=== PATIENT | female | born 1975 | race Caucasian/White ===

== ENCOUNTER → 2022-11-09 09:49 | Outpatient (BNVA) | payer BC, SELFPAY | PROVIDERS: Family Provider Nurse Practitioner Family; Visit Provider Obstetrics & Gynecology | DX: Z30.9 Encounter for contraceptive management, unspecified (principal); Z12.4 Encounter for screening for malignant neoplasm of cervix | CPT/HCPCS: 81025; 87624 ==

== ENCOUNTER → 2022-11-26 11:36 | Outpatient (BNVA) | payer BC, SELFPAY | PROVIDERS: Family Provider Nurse Practitioner Family; Visit Provider Obstetrics & Gynecology | DX: Z30.430 Encounter for insertion of intrauterine contraceptive device (principal) | CPT/HCPCS: 76830 ==

== ENCOUNTER 2024-07-18 11:27 | Emergency (ER) | payer BC, SELFPAY ==
[2024-07-18 11:42] VITALS: BP 129/83; PULSE 63; RESP 18; TEMP 36.7; O2SAT 99; BMI 31.2
--- NOTE | 2024-07-18 11:54 | CT_ITS ---
WS: [id number] CT ABDOMEN PELVIS TECHNIQUE: Noncontrast CT of the abdomen and pelvis with coronal and sagittal reformatted images. CLINICAL INFORMATION: flank pain COMPARISON: None. DLP: 689.[address] scans at [facility] use at least one of these dose optimization techniques: automated exposure control; mA and/or kV adjustment per patient size (includes targeted exams where dose is matched to clinical indication); or iterative reconstruction. FINDINGS: Postoperative changes gastric sleeve procedure. Normal noncontrast liver and spleen. Some images degraded by respiratory artifact in the upper abdomen. Normal noncontrast pancreas. Fat-containing epigastric hernia. Tiny fat- containing umbilical hernia. IUD. Adrenal glands are normal. Mild to moderate LEFT hydronephrosis with LEFT ureterectasis. Inflammatory stranding and edema about the LEFT ureter. Obstructing distal LEFT ureteral calculus measuring 4.6 mm. This is proximal to the UVJ in the distal third ureter. No hydronephrosis in the RIGHT kidney. Few sigmoid diverticuli. Normal sigmoid colon. Normal appendix. Grade 1 anterolisthesis L4 on L5. CT/CT kidney stone [id number] IMPRESSION: 1. 4.6 mm obstructing LEFT distal ureteral calculus proximal to the UVJ in the pelvis. 2. Mild to moderate LEFT hydronephrosis with induration and inflammatory stran ding about the LEFT kidney. Mild LEFT ureterectasis. 3. IUD. 4. Prior gastric sleeve. 5. Small epigastric and umbilical fat-containing hernias. 6. No other acute findings.
--- NOTE | 2024-07-18 11:56 | ED_ITS ---
HPI - Back Pain/Injury 2 General: Chief Complaint: Back Pain/Injury Stated Complaint: back and abdominal pain Time Seen by Provider: 07/18/24 11:39 Source: patient Mode of arrival: ambulatory Limitations: no limitations History of Present Illness: 49-year-old female states been having le ft flank pain radiating to groin last 2 days. States pains been sharp in nature rates a 7 out of 10 she had nausea vomiting with the pain states pain feels internal denies any worsening with movement or palpation. States she has noticed that her urine seems concentrated but she denies any dysuria or frequency. She denies fever no history of kidney stones Associated symptoms: Deny abdominal pain, chills, dysuria, fever(s), nausea or vomiting Related Data Home Medications ?Medication ?Instructions ?Recorded ?Confirmed levonorgestrel (Mirena) 1 device intrauterine .8 yea rs 11/09/22 07/18/24 escitalopram oxalate 20 mg tablet 20 mg PO DAILY 07/1807/18/24 Previous Rx's ?Medication ?Instructions ?Recorded hydrocodone 5 mg-acetaminophen 325 1 tab PO Q6H PRN pa in #14 tabs 07/18/24 mg tablet ondansetron 4 mg disintegrating 4 mg PO Q6H PRN nausea and 07/18/24 tablet vomiting #14 tabs tamsulosin 0.4 mg capsule (Flomax) 0.4 mg PO DAILY #5 caps 07/18/24 Allergies Allergy/AdvReac Type Severity Reaction Status Date / Time Sulfa (Sulfonamide Allergy rash Verified 11/09/22 09:31 Antibiotics) Review of Systems 2 Const: Denies: fever(s), chills, body aches or change in appetite ENMT: Denies: throat pain or dental pain Card: Denies: chest pain Resp: Denies: dyspnea GI: Denies: abdominal pain, nausea, vomiting or diarrhea : Reports: flank pain; Denies: dysuria Musc: Denies: neck pain or back pain Skin/Breast: Denies: rash Neuro: Denies: headache(s) PFSH ED 2 PFSH: Family History (Updated 11/09/22 @ 09:32 by Hunter Tariq) Mother Heart disease Diabetes Denies family history of Colon cancer Ovarian cancer Hyperlipidemia Breast cancer Hypertension Uterine cancer Thyroid disease Stroke Physical Exam 2 Const: COMMON NORMALS: no acute distress, patient oriented x3 and healthy appearing HENMT: COMMON NORMALS: normocephalic and atraumatic HEAD & SCALP: n ormocephalic and atraumatic Eye: COMMON NORMALS: conjunctivae normal CONJUNCTIVA: Yes conjunctivae normal Neck/C-Spine: COMMON NORMALS: full ROM and supple Chest: COMMONS NORMALS: normal inspection of the chest Resp: COMMON NORMALS: normal respiratory effort, No retractions, No use of accessory muscles and clear to auscultation bilaterally AUSCULTATION: clear to auscultation bilaterally Cardio: COMMON NORMALS: regular rate, regular rhythm and No murmurs present (Cardio) RATE: regular rate RHYTHM: regular rhythm GI: COMMON NORMALS: Normal to inspection, nondistended, normoactive bowel sounds present, Soft to palpation, non-tender and no masses PALPATION: Yes Soft to palpation : OTHER: No flank tenderness Extremity: COMMON NORMALS: normal to inspection and full ROM Neuro: COMMON NORMALS: patient oriented x3, moves all extremities and no focal motor deficits Psych: COMMON NORMALS: mental status grossly normal, Normal thought process present and cooperative THOUGHT PROCESS: Normal thought process present Skin: COMMON NORMALS: no rashes or lesions noted and no wounds GENERAL SKIN EXAM: no rashes or lesions noted Course 2 Vital Signs: Vital signs: Vital Signs Temperature 98.1 F 07/18/24 11:42 Pulse Rate 63 07/18/24 11:42 Respiratory Rate 24 H 07/18/24 12:04 Blood Pressure 129/83 07/18/24 11:42 Pulse Oximetry 98 07/18/24 12:04 Oxygen Delivery Me thod Room Air 07/18/24 11:42 MDM - Back Pain/Injury Medical Decision Making Patient presents here with flank pain does have a kidney stone no signs of infection her pain has improved here we will prescribe her pain medicine she is follow-up with her PCP return if worsening she understands agrees to plan Medical Records I reviewed the patient's medical records. Labs I reviewed the patient's lab results. 07/18/24 12:00 07/18/24 12:00 Radiology Impressions Abdomen/Pelvis CT 07/18/24 11:54 IMPRESSION: 1. 4.6 mm obstructing LEFT distal ureteral calculus proximal to the UVJ in the pelvis. 2. Mild to moderate LEFT hydronephrosis with induration and inflammatory stranding about the LEFT kidney. Mild LEFT ureterectasis. 3. IUD. 4. Prior gastric sleeve. 5. Small epigastric and umbilical fat-containing hernias. 6. No other acute findings. Laboratory Results WBC 8.09 10^3/uL (3.29-11.43) 07/18/24 12:00 RBC 4.81 10^6/uL (3.85-5.65) 07/18/24 12:00 Hgb 13.60 g/dL (11.27-16.99) 07/18/24 12:00 Hct 41.7 % (36-47) 07/18/24 12:00 MCV 86.7 fl (85-98) 07/18/24 12:00 MCH 28.3 pg (27-33) 07/18/24 12:00 MCHC 32.6 g/dL (30-55) 07/18/24 12:00 RDW 11.9 % (12.1-15.1) L 07/18/24 12:00 Plt Count 278 10^3/cmm (157-399) 07/18/24 12:00 MPV 10.1 fL (7.4-10.4) 07/18/24 12:00 Neut % (Auto) 70.9 % 07/18/24 12:00 Lymph % (Auto) 21.8 % 07/18/24 12:00 [place] % (Auto) 3.8 % 07/18/24 12:00 Eos % (Auto) 2.8 % 07/18/24 12:00 Baso % (Auto) 0.6 % 07/18/24 12:00 Neut # (Auto) 5.73 10^3/uL (1.8-7.7) 07/18/24 12:00 Lymph # (Auto) 1.8 10^3/uL (0.8-4.8) 07/18/24 12:00 [place] # (Auto) 0.3 10^3/uL (0.2-0.9) 07/18/24 12:00 Eos # (Auto) 0.2 10^3/uL (0.0-0.8) 07/18/24 12:00 Baso # (Auto) 0.1 10^3/uL (0.0-0.1) 07/18/24 12:00 Nucleated RBC % (auto) 0 % 07/18/24 12:00 Nucleated RBCs # 0.0 /100WBC 07/18/24 12:00 Sodium 141 mmol/L (136-145) 07/18/24 12:00 Potassium 4.6 mmol/L (3.5-5.1) 07/18/24 12:00 Chloride 105 mmol/L (98-107) 07/18/24 12:00 Carbon Dioxide 24 mmol/L (22-29) 07/18/24 12:00 Anion Gap 16.6 (5-19) 07/18/24 12:00 BUN 12 mg/dL (6-20) 07/18/24 12:00 Creatinine 0.8 mg/dL (0.5-0.9) 07/18/24 12:00 GFR Calculation 76.2 mL/min (90-130) L 07/18/24 12:00 Glucose 131 mg/dL (65-115) H 07/18/24 12:00 Calculated Osmolality 294 mOsm/kg (285-295) 07/18/24 12:00 Calcium 9.2 mg/dL (8.5-10.5) 07/18/24 12:00 Total Bilirubin 0.5 mg/dL (0.15-1.2) 07/18/24 12:00 AST 16 U/L (0-32) 07/18/24 12:00 ALT 13 U/L (0-33) 07/18/24 12:00 Alkaline Phosphatase 80 U/L (35-105) 07/18/24 12:00 Total Protein 7.4 g/dL (6.6-8.7) 07/18/24 12:00 Albumin 4.6 g/dL (3.5-5.2) 07/18/24 12:00 Globulin 2.8 g/dL (1.3-4.6) 07/18/24 12:00 Lipase 34 U/L (13-60) 07/18/24 12:00 Urine Color Yellow (Yellow) 07/18/24 12:05 Urine Appearance Cloudy (CLEAR) A 07/18/24 12:05 Urine pH 5.0 (5-7) 07/18/24 12:05 Ur Specific [place] 1.018 (1.005-1.030) 07/18/24 12:05 Urine Protein 1+ (Negative) A 07/18/24 12:05 Urine Glucose (UA) Negative (Normal) 07/18/24 12:05 Urine Ketones 1+ (Negative) H 07/18/24 12:05 Urine Blood 3+ (Negative) A 07/18/24 12:05 Urine Nitrate Negative (Negative) 07/18/24 12:05 Urine Bilirubin Negative (Negative) 07/18/24 12:05 Urine Urobilinogen 1.0 mg/dL (Negative) 07/18/24 12:05 Ur Leukocyte Esterase Negative (Negative) 07/18/24 12:05 Urine RBC >100 /hpf (0-2) H 07/18/24 12:05 Urine WBC 0-5 /hpf (0-5) 07/18/24 12:05 Ur Squamous Epith Cells 0-5 /hpf (0-5) 07/18/24 12:05 Amorphous Sediment Not Reportable 07/18/24 12:05 Urine Bacteria None seen /hpf (NONE) 07/18/24 12:05 Hyaline Casts 1.21 /lpf 07/18/24 12:05 All radiology interpretation(s) finalized by discharge Discharge Plan Discharge Patient Disposition: Home Clinical Impression: Kidney stone Condition: Stable Prescriptions: New hydrocodone-acetaminophen 5-325 mg tablet 1 tab PO Q6H PRN (Reason: pain) Qty: 14 0RF ondansetron 4 mg tablet,disintegrating 4 mg PO Q6H PRN (Reason: nausea and vomiting) Qty: 14 0RF tamsulosin [Flomax] 0.4 mg capsule 0.4 mg PO DAILY Qty: 5 0RF No Action Mirena 21 mcg/24 hours (8 yrs) 52 mg intrauterine device 1 device intrauterine .8 years escitalopram oxalate 20 mg tablet 20 mg PO DAILY Discharge Orders: Discharge ED (Routine); Ordered 07/18/24 Ordered By: Tico Carvalho Discharge Diet: Advance as tolerated Discharge Activity: Resume usual activity Patient Instructions: Kidney Stones (ED) Print Language: Syriac Coding Level of Care Code ED Front End Assistant for Gordo Cohn
[2024-07-18 12:04] VITALS: RESP 24; O2SAT 98
[2024-07-18 12:04] LABS: Basophils # 0.1 10^3/uL (0.0-0.1); Basophils % 0.6 %; Eosinophils # 0.2 10^3/uL (0.0-0.8); Eosinophils % 2.8 %; Hematocrit 41.7 % (36-47); Lymphocytes # 1.8 10^3/uL (0.8-4.8); Lymphocytes % 21.8 %; Mean Corpuscular HGB Conc 32.6 g/dL (30-55); Mean Corpuscular Hemoglobin 28.3 pg (27-33); Mean Corpuscular Volume 86.7 fl (85-98); Mean Platelet Volume 10.1 fL (7.4-10.4); Monocytes # 0.3 10^3/uL (0.2-0.9); Monocytes % 3.8 %; Neutrophils # 5.73 10^3/uL (1.8-7.7); Neutrophils % 70.9 %; Nucleated Red Blood Cells % 0 %; Platelet Count 278 10^3/cmm (157-399); Red Blood Count 4.81 10^6/uL (3.85-5.65); Red Cell Distribution Width 11.9 % (12.1-15.1); White Blood Count 8.09 10^3/uL (3.29-11.43)
[2024-07-18] MEDS: morphine 4 mg/mL SDV 1 mL IVP (12:04)
[2024-07-18] MEDS: ondansetron 2 mg/ML SDV 2 mL 4 MG IVP (12:05)
[2024-07-18] MEDS: ketorolac 30 mg/mL INJ 15 MG IVP (12:05)
[2024-07-18 12:29] LABS: Bilirubin Urine Negative (Negative); Blood Urine 3+ (Negative); Glucose Urine UA Negative (Normal); Ketones Urine 1+ (Negative); Leukocyte Esterase Urine Negative (Negative); Nitrate Urine Negative (Negative); Protein Urine 1+ (Negative); Specific Gravity, Urine 1.018 (1.005-1.030); Urine Appearance Cloudy (CLEAR)
[2024-07-18 12:31] LABS: Add Urine Microscopic? YES; Bacteria Urine None Seen /hpf; Hyaline Casts Urine 1.21 /lpf; RBC Urine >100 /hpf (0-2); Squamous Epithelial Cell Urine 0-5 /hpf (0-5); WBC Urine 0-5 /hpf (0-5)
[2024-07-18 12:34] LABS: Add Urine Culture? Yes; Urine Color Yellow (Yellow)
[2024-07-18 12:42] LABS: Alanine Aminotransferase 13 U/L (0-33); Albumin Level 4.6 g/dL (3.5-5.2); Alkaline Phosphatase 80 U/L (35-105); Anion Gap 16.6 (5-19); Aspartate Amino Transferase 16 U/L (0-32); Blood Urea Nitrogen 12 mg/dL (6-20); Calcium 9.2 mg/dL (8.5-10.5); Carbon Dioxide 24 mmol/L (22-29); Chloride 105 mmol/L (98-107); Creatinine Clr Calc Pharmacy 88.4175; Globulin 2.8 g/dL (1.3-4.6); Glomerular Filtration Rate 76.2 mL/min (90-130); Glucose 131 mg/dL (65-115); Lipase 34 U/L (13-60); Osmolality Calculated 294 mOsm/kg (285-295); Potassium 4.6 mmol/L (3.5-5.1); Sodium 141 mmol/L (136-145); Total Bilirubin 0.5 mg/dL (0.15-1.2); Total Protein 7.4 g/dL (6.6-8.7)
[2024-07-18 13:41] VITALS: BP 144/88; PULSE 65; O2SAT 99
--- NOTE | 2024-07-20 19:29 | DCPLANNER ---
Referral for urology sent to [facility]
== END 2024-07-18 13:42 | disposition home or self-care (01) ==
PROVIDERS: Emergency Provider Emergency Medicine
DX: N20.0 Calculus of kidney (principal)
CPT/HCPCS: 36415; 74176; 80053; 81001; 83690; 85025; 87086; 96374; 96375; 99285; J1885; J2270; J2405